=== PATIENT | female | born 1985 | race Caucasian/White ===

== ENCOUNTER 2019-10-05 12:07 | Outpatient (CLI) | payer MEDICAID, SELFPAY ==
--- NOTE | 2019-10-05 | US_ITS ---
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 Single intrauterine gestation in transverse presentation. Cervix is Closed and normal length. Cervical length is 4.1 cm. Normal amount of amniotic fluid surrounds the fetus. Placenta: Fundal and extends anterior to posterior. No previa or abruption. Placenta grade 1 Heart: 161 BPM. Four chambers are identified. Anatomy: Intracranial structures are normal. The spine is posterior during the entire examination. Th e overlying skin is very difficult to visualize as are the lamina. kidneys, stomach and urinary bladder are unremarkable. Abdominal wall, three-vessel cord and cord insertion site are normal. 4 extremities are present. profile: Unremarkable. Gender: Male. measurements: BPD = 4.9 cm = 20w6d HC = 18.2 cm = 20w4d AC = 17.2 cm = 22w1d FL = 3.4 cm = 20w4d EFW: 414 g., Measurements are internally concordant. AGA by ultrasound: 20w1d RHYS by ultrasound: 02/15/2020 US/US OB >= 14 weeks fetus [id number] IMPRESSION: 1. Single intrauterine gestation of 20w1d with an EDC of 02/15/2020. 2. spine is posterior during this examination which limits evaluation. T he remaining anatomy is normal. Recommend short-term, 2-3 week follow-up of the spine to ensure no abnormality.
== END 2019-10-05 12:08 | disposition home or self-care (01) ==
LOC: RADOUTREAD 10-06 07:41
PROVIDERS: Family Provider Nurse Practitioner Family; PCP Nurse Practitioner Family; Visit Provider Family Medicine
DX: Z01.89 Encounter for other specified special examinations (principal)

== ENCOUNTER 2020-01-22 06:11 | Inpatient (IN) | payer MEDICAID, SELFPAY ==
[2020-01-22] VITALS (83 sets, daily range): BP systolic 0–138; BP diastolic 0–84; PULSE 59–94; RESP 14–18; TEMP 36.4–37.1; O2SAT 98–100; BMI 29.0
[2020-01-22] MEDS: dextrose 5%-lactated ringers 1,000 ML 125 ML IV (07:01)
[2020-01-22 07:37] LABS: Basophils % 0.4 %; Eosinophils # 0.1 10^3/uL (0.0-0.8); Hematocrit 30.8 % (37.0-47.0); Lymphocytes # 1.7 10^3/uL (0.8-4.8); Lymphocytes % 21.7 %; Mean Corpuscular HGB Conc 32.5 g/dL (30.0-36.0); Mean Corpuscular Hemoglobin 28.2 pg (28.0-34.0); Mean Corpuscular Volume 86.8 fL (81-99); Mean Platelet Volume 11.7 fL (7.4-10.4); Monocytes # 0.7 10^3/uL (0.2-0.9); Monocytes % 8.4 %; Neutrophils # 5.3 10^3/uL (1.8-7.7); Neutrophils % 67.2 %; Nucleated Red Blood Cells % 0 %; Platelet Count 184 10^3/cmm (130-400); Red Blood Count 3.55 10^6/uL (4.1-5.3); Red Cell Distribution Width 14.1 % (12.1-15.1); White Blood Count 7.9 10^3/uL (4.0-10.0)
[2020-01-22] MEDS: miSOPROStol 100 mcg tablet 25 MCG VAGINAL ×2 (10:03→14:37)
[2020-01-22] MEDS: ceFAZolin 1,000 MG in sodium chloride 0.9% (plus) 50 ML 100 MG IV (14:35)
[2020-01-22] MEDS: lactated ringers 1,000 ML 999 ML IV ×2 (17:00→18:47)
--- NOTE | 2020-01-22 18:40 | ANES.PREANE2 ---
Pre-Anesthetic Assessment Pre-Anesthetic Assessment: Height/Weight: Height 1.52 m Weight 67.585 kg Temp Pulse Resp BP 97.8 F 74 17 104/56 01/22/20 16:16 01/22/20 18:57 01/22/20 16:16 01/22/20 18:57 Preop Diagnosis: IUP Proposed Procedure: labor epidural Was Beta Emmanuelle taken within 24 hours: N/A Social: Social History: No alcohol and No tobacco Exam: Pre-Anes Outpt Exam: alert, oriented x 3, clear to auscultation bilaterally and regular rate & rhythm Airway: Submandibular: WNL Cervical ROM: WNL MP: 2 History/ROS: No significant history except as noted Pulmonary: Comments: abnormal PFTs CV/HEM: CV/HEM: Palp Comments: fluid around the heart received US every year to check : Comments: PKD Hepatic: Hepatic: None reported GI: GI: GERD Metabolic: Metabolic: None reported Musc/skel: Musc/skel: Scoliosis Neuropsych: Neuropsych: Seizure (2 years ago under stressful situations) Anesthetic Plan: ASA status: 2 Anesthesia: Anesthesia Evaluation Risk of > 500 ml blood loss (7ml/kg in children): No Meds/Allergies Current Medications: Current Medications Generic Name Dose Route Start Last Admin Trade Name Freq PRN Reason Stop Dose Admin Lactated Ringer's 1,000 mls @ 999 m ls/hr 01/22/20 06:44 01/22/20 17:00 Lactated Ringers IV 999 mls/hr .Q1H1M PRN Administration Per L&D Rescitati on Protocol Cefazolin Sodium 1 ,000 mg/ 50 mls @ 100 mls/ hr 01/22/20 06:45 01/22/20 15:35 Sodium Chloride IV Infused Q8H LEONIDES Infusion Protocol Dextrose/Lactated Ringer's 1,000 mls @ 125 m ls/hr 01/22/20 06:45 01/22/20 08:08 Dextrose 5%-Lact ated Ringers IV 0 mls/hr .Q8H LEONIDES Infusion Lactated Ringer's 1,000 mls @ 999 m ls/hr 01/22/20 18:24 01/22/20 18:47 Lactated Ringers IV 01/22/20 19:24 999 mls/hr .Q1H1M ONE Administration PFS Anesthesia Female Reproductive History: : 4 Data Anesthesia CBC & Chem 7: 01/22/20 06:56 Other Labs: Laboratory Results - last 48 hr 01/22/20 06:56 WBC 7.9 RBC 3.55 L Hgb 10.0 L Hct 30.8 L MCV 86.8 MCH 28.2 MCHC 32.5 RDW 14.1 Plt Count 184 MPV 11.7 H Neut % (Auto) 67.2 Lymph % (Auto) 21.7 [place] % (Auto) 8.4 Eos % (Auto) 1.0 Baso % (Auto) 0.4 Neut # (Auto) 5.3 Lymph # (Auto) 1.7 [place] # (Auto) 0.7 Eos # (Auto) 0.1 Baso # (Auto) 0.0 Nucleated RBC % (auto) 0 Nucleated RBCs # 0.0 Cardiac Studies: No Data to Display
--- NOTE | 2020-01-22 19:39 | ANES.PROC ---
Anesthesia Procedures Procedure/Date: 01/22/20 Epidural: Time Out Performed: Yes Consents Signed: Procedure Consent Consent: requested by attending/covering physician Lumbar Level: L4-L5 Epidural position: sitting Epidural procedure: sterile prep of area, 1% lidocaine to numb the area, 18 g needle, negative for paresthesia passed, test dose given, 1.5% xylocaine 1:200k epi (5ml), placed PCEA, no systemic response, sterile dressing applied, L.U.D. no apparent complications and 0.2% Ropiavacaine @ mls/hr (13)
[2020-01-22] MEDS: oxytocin 30 UNIT/500 ML BAG IV (20:55)
--- NOTE | 2020-01-22 22:45 | PM.DELIVERY ---
Delivery Note: Date of delivery: January 22, 2020 Pre-Delivery Course: The patient is a 34-year-old 3 para 2 with an estimated gestational age of 35 weeks and 4 days who presented to the hospital this morning complaining of spontaneous rupture of membranes. She was evaluated by the nurses on the OB floor and found to be nitrazine positive and grossly ruptured. Her GBS status is unknown. She is placed on Keflex per GBS protocol. She was placed on Cytotec 25 mcg x 2. She was also ultimately placed on Pitocin. She gradually progressed to complete without difficulty. The infant did have several episodes of early and late decelerations. She did receive an epidural. Delivery: DELIVERY: The patient progressed to complete without difficulty. She delivered a male with a weight of 5 pounds 15 ounces with Apgars of 9, 10. The baby was delivered from the PING position. The baby's mouth and nose were suctioned at the site of the perineum. The baby was then completely delivered and placed on the mother's abdomen. The cord was then clamped and cut. There was no nuchal cord. A true knot was noted in the cord. There was no meconium. The placenta and 3 vessel cord were delivered intact shortly thereafter. The perineum and vaginal vault were carefully examined. No lacerations were noted. Both the mother and the baby were in stable condition. Post-Delivery Status: Good A&P Assessment and plan (1) 35 weeks gestation of : Anticipate routine care. I anticipate the patient will be discharged in 1 to 2 days as a standard. Status: Acute (2) Spontaneous vaginal delivery: Status: Acute Coding Level of Care Code Acute Electric Motor Repairman for Chg Fwd Diagnoses 35 weeks gestation of Z3A.35 Spontaneous vaginal delivery O80
[2020-01-23] VITALS (16 sets, daily range): BP systolic 0–123; BP diastolic 0–69; PULSE 60–86; RESP 16–18; TEMP 36.6–36.9; O2SAT 97–99
[2020-01-23] MEDS: lanolin oint 7 gm 1 APPLIC TOPICAL (05:33)
[2020-01-23] MEDS: benzocaine-menthol 78 gm Canister 1 SPRAY TOPICAL (05:33)
[2020-01-23] MEDS: docusate sodium 100 mg Capsule PO ×2 (07:36→18:07)
[2020-01-23] MEDS: prenatal vitamin Capsule 1 CAP PO (07:36)
[2020-01-23] MEDS: acetaminophen 325 mg Tablet 650 MG PO ×2 (07:36→19:47)
--- NOTE | 2020-01-23 09:43 | P.PN_ITS ---
PAIRER INSPECTOR Subjective Subjective: Interval history: The patient is doing remarkably well. She has had minimal bleeding. She is breast-feeding well. Her pain is been adequately controlled. There have been no concerns. Labor: Station: 0 Amniotic Membrane Status: Ruptured Monitor Mode: External Contraction Pattern: Regular Vitals/I&O/Wt Last Vital Signs Temp 97.8 F 01/23/20 08:41 Pulse 68 01/23/20 08:41 Resp 18 01/23/20 08:41 BP 122/63 01/23/20 08:41 Pulse Ox 99 01/23/20 08:41 01/22/20 01/23/20 01/23/20 22:59 06:59 14:59 Intake Total 1083 / 1272.583 Output Total 450 / 450 300 / 750 Balance 633 / 822.583 -300 / 522.583 Weight last 48 hrs Weight 149 lb Physical Exam Narrative: EXAM NARRATIVE: The patient is alert. She appears comfortable. Her heart has a regular rate and rhythm with no murmurs appreciated. Lungs are clear to auscultation bilaterally. Her fundus is firm and below the umbilicus. Urinary Catheter Management^: Cruz: Cath Placed During This Visit: yes, but has since been removed by the nurse Reason for Continuing Indwelling Catheter: Decision to DC Catheter Urinary Catheter Date of Insertion: 01/22/20 Urinary Catheter Time of Insertion: 20:30 Date Urinary Catheter Removed: 01/22/20 Time Urinary Catheter Discontinued: 22:15 Data : 01/22/20 06:56 A&P Assessment and plan (1) Spontaneous vaginal delivery: I anticipate routine care. She should be going home in 1 to 2 days. Status: Acute (2) 35 weeks gestation of : Status: Acute Attestations Medical Necessity Statement*: Routine care. Coding Level of Care Code Acute Private Tutors And Teachers for Chg Fwd Diagnoses Spontaneous vaginal delivery O80 35 weeks gestation of Z3A.35
[2020-01-23 10:58] LABS: Hematocrit 29.5 % (37.0-47.0); Hemoglobin 9.6 g/dL (11.5-15.3); Mean Corpuscular HGB Conc 32.5 g/dL (30.0-36.0); Mean Corpuscular Hemoglobin 28.5 pg (28.0-34.0); Mean Corpuscular Volume 87.5 fL (81-99); Mean Platelet Volume 11.7 fL (7.4-10.4); Platelet Count 184 10^3/cmm (130-400); Red Blood Count 3.37 10^6/uL (4.1-5.3); Red Cell Distribution Width 14.4 % (12.1-15.1); White Blood Count 9.5 10^3/uL (4.0-10.0)
[2020-01-24 05:00] VITALS: BP 109/68; PULSE 68; RESP 16; O2SAT 98
--- NOTE | 2020-01-24 07:24 | P.DS_ITS ---
Discharge Providers MECHANIC WELDER TRUCK DRIVER Date of Admission: 01/22/20 06:11 Date of Discharge: 01/24/20 Attending Provider at Admission: Duarte Keane MD Attending Provider at Discharge: Duarte Keane MD Diagnoses at Discharge Discharge Diagnosis (1) Spontaneous vaginal delivery: Status: Acute (2) 35 weeks gestation of : Status: Acute Reason for Visit Reason for Visit: OB TRIAGE Hospital Course Hospital Course: The patient is a 34-year-old multigravida female at 35 weeks estimated gestational age who presented to the hospital with spontaneous rupture of membranes. Her labor was unremarkable. She also had an unremarkable vaginal delivery of a healthy-appearing 35-week male . Her course is also been unremarkable. She has breast-fed well. Her bleeding has been scant. Her pain is been well controlled. There have been no concerns. Information Peripartum Data: Infant Delivery Method: Vaginal Physical Exam Narrative: EXAM NARRATIVE: The patient is alert. She appears comfortable. Her heart has a regular rate and rhythm with no murmurs appreciated. Lungs are clear to auscultation bilaterally. Her fundus is firm and below the umbilicus. Urinary Catheter Management^: Cruz: Cath Placed During This Visit: yes, but has since been removed by the nurse Reason for Continuing Indwelling Catheter: Decision to DC Catheter Urinary Catheter Date of Insertion: 01/22/20 Urinary Catheter Time of Insertion: 20:30 Date Urinary Catheter Removed: 01/22/20 Time Urinary Catheter Discontinued: 22:15 Discharge Data Data Completed and Pending: Labs from last 24 hours 01/23/20 10:34 WBC 9.5 RBC 3.37 L Hgb 9.6 L Hct 29.5 L MCV 87.5 MCH 28.5 MCHC 32.5 RDW 14.4 Plt Count 184 MPV 11.7 H Vitals: Last Vital Signs Temp 98.1 F 01/23/20 21:25 Pulse 68 01/24/20 05:00 Resp 16 01/24/20 05:00 BP 109/68 01/24/20 05:00 Pulse Ox 98 01/24/20 05:00 Discharge Plan Discharge Patient Disposition: Home, Self-Care Condition: Stable Prescriptions: New ibuprofen 800 mg Tablet 800 mg PO TID Qty: 45 RF: 0 Continued 28 mg iron- 800 mcg Tablet 1 tab PO DAILY RF: 0 Discharge Orders: Discharge Order (Routine); Ordered 01/24/20 Ordered By: Duarte Keane Referrals: Duarte Keane MD [Physician] - 7-10 days (Also set up 6 week check) Discharge Diet: Usual diet Discharge Activity: Limit activity as instructed Discharge Attestations MECHANIC WELDER TRUCK DRIVER Time Spent in Discharge Care*: less than 30 min Coding Level of Care Code Acute Linux Network Systems Administrator for Chg Fwd Diagnoses Spontaneous vaginal delivery O80 35 weeks gestation of Z3A.35
[2020-01-24 09:20] VITALS: BP 98/69; PULSE 83; RESP 16; TEMP 36.7; O2SAT 97
[2020-01-24] MEDS: prenatal vitamin Capsule 1 CAP PO (09:23)
[2020-01-24] MEDS: docusate sodium 100 mg Capsule PO (09:23)
[2020-01-24 16:15] VITALS: BP 119/72; PULSE 66; RESP 16; TEMP 36.7; O2SAT 98
--- NOTE | 2020-01-24 18:16 | PC.NURSE ---
Mom and baby taken to car for discharge per wheelchair at 1800, nurse and tech at side. While assessing carseat and adjusting appropriately for baby it was found that the seat would not adjust down small enough for baby. Carseat was noted to be within correct guidelines for date, weight, and rear facing but would not allow to adjust down to correct size. Mother and baby then placed back into wheelchair and taken back to OB dept while father goes to store to buy new seat.
== END 2020-01-24 19:00 | disposition home or self-care (01) | DRG 807 ==
LOC: OPOB 06:15 → OBGYN 06:15 → OPOB 22:43 → OBGYN 22:43
PROVIDERS: Admitting Provider Family Medicine; Family Provider Nurse Practitioner Family; Visit Provider Family Medicine
DX: O42.013 Preterm premature rupture of membranes, onset of labor within 24 hours of rupture, third trimester (principal); Z37.0 Single live birth; Z3A.35 35 weeks gestation of pregnancy; O76 Abnormality in fetal heart rate and rhythm complicating labor and delivery
CPT/HCPCS: 12345; 36415; 51702; 59025; 59409; 83986; 85025; 85027; 99211; J0690; J2795

== ENCOUNTER 2020-04-06 15:22 | Outpatient (CLI) | payer MEDICAID, SELFPAY ==
--- NOTE | 2020-04-06 15:23 | USCV_ITS ---
Veronica Michelle Age: 34 Gender: F : 1985 Exam Date: 04/06/2020 15:42 Ordering Phys: Bernabe Shay PA-C XX Technologist: Beti Goodwin Exam Location: [facility] [place] Indication: Chest Pain BP: 107 / 58 HR: 74 Rhythm: Sinus Technical Quality: Adequate MEASUREMENTS (Male / Female) Normal Values 2D ECHO LV Diastolic Diameter PLAX 4.3 cm 4.2 - 5.9 / 3.9 - 5.3 cm LV Systolic Diameter PLAX 3.0 cm LV Chamber Size 2.6 cm IVS Diastolic Thickness 0.9 cm 0.6 - 1.0 / 0.6 - 0.9 cm IVS Systolic Thickness 0.9 cm LVPW Diastolic Thickness 1.3 cm 0.6 - 1.0 / 0.6 - 0.9 cm LVPW Systolic Thickness 1.5 cm RV Chamber Size 2.2 cm LVOT Diameter 2.0 cm LV Ejection Fraction 2D Teich 55.6 % LV Ejection Fraction MOD 2C 74.1 % LV Ejection Fraction 2C AL 74.1 % LA Diameter 2.5 cm LA Width 2.2 cm LA Height 3.0 cm RA Width 2.5 cm RA Height 3.5 cm Aorta at Sinotubular Diameter 1.8 cm M-MODE LV Diastolic Diameter MM 5.6 cm 4.2 - 5.9 / 3.9 - 5.3 cm LV Systolic Diameter MM 3.5 cm LV Ejection Fraction MM Teich 66.3 % IVS Diastolic Thickness MM 0.5 cm 0.6 - 1.0 / 0.6 - 0.9 cm IVS Systolic Thickness MM 0.9 cm LVPW Diastolic Thickness MM 0.7 cm 0.6 - 1.0 / 0.6 - 0.9 cm LVPW Systolic Thickness MM 1.3 cm Aortic Annulus Diameter 3.5 cm LA Ao Ratio MM 0.7 MV E Point Septal Separation 0.6 cm DOPPLER AV Peak Velocity 114.0 cm/s LVOT Peak Velocity 106.0 cm/s AV Area Cont Eq vti 3.0 cm squared AV Area Cont Eq pk 3.0 cm squared MV Area PHT 3.1 cm squared Mitral E to A Ratio 1.3 MV E' Velocity 15.0 cm/s Mitral E to MV E' Ratio 5.2 Mitral E to LV E' Lateral Ratio 4.9 Mitral E to LV E' Septal Ratio 5.5 TR Peak Velocity 222.0 cm/s TR Peak Gradient 19.6 mmHg TV Peak E Velocity 68.0 cm/s Right Atrial Pressure 3.0 mmHg Pulmonary Artery Systolic Pressu 22.7 mmHg PV Peak Velocity 52.0 cm/s RV Acceleration Time 0.2 s RV Ejection Time 0.3 s RV AcT/ET 0.5 FINDINGS Left Ventricle Normal left ventricular size, systolic function and wall thickness, with no regional wall motion abnormalities. LVEF is 55 to 60%. Normal left ventricular wall thickness. Normal diastolic filling pattern. Right Ventricle The right ventricle is normal in size and function. Right Atrium The right atrium is normal in size. Left Atrium The left atrium is normal in size. Mitral Valve Structurally normal mitral valve without significant stenosis or prolapse. Trace mitral regurgitation is noted. Aortic Valve Structurally normal aortic valve without significant sclerosis or stenosis. There is no aortic regurgitation. Tricuspid Valve Structurally normal tricuspid valve without significant stenosis or regurgitation. Pulmonary artery systolic pressure is normal. Pulmonic Valve Structurally normal pulmonic valve without significant stenosis. There is no pulmonic regurgitation. Pericardium Normal pericardium without effusion. Aorta Normal ascending aorta dimension. CONCLUSIONS Normal LV systolic function with EF of 55 to 60%. Normal diastolic function Carlos Sims MD (Electronically Signed) Final Date: 06 April 2020 17:18 S
== END 2020-04-06 15:23 | disposition home or self-care (01) ==
LOC: US 15:22
PROVIDERS: PCP Family Medicine; Visit Provider Physician Assistant Medical
DX: R07.9 Chest pain, unspecified (principal)
CPT/HCPCS: 93306

== ENCOUNTER → 2021-08-10 10:07 | Outpatient (BNVA) | payer BC, MEDICAID, SELFPAY | PROVIDERS: PCP Family Medicine; Visit Provider Nurse Practitioner Family | DX: Z20.822 Contact with and (suspected) exposure to COVID-19 (principal) | CPT/HCPCS: 87635 ==

== ENCOUNTER → 2022-05-31 16:20 | Outpatient (BNVA) | payer BC, MEDICAID, SELFPAY | PROVIDERS: PCP Family Medicine; Visit Provider Obstetrics & Gynecology | DX: Z01.419 Encounter for gynecological examination (general) (routine) without abnormal findings (principal); N81.2 Incomplete uterovaginal prolapse; R63.6 Underweight; G89.29 Other chronic pain; R10.2 Pelvic and perineal pain; N93.0 Postcoital and contact bleeding; N85.4 Malposition of uterus | CPT/HCPCS: 87624 ==

== ENCOUNTER → 2022-07-11 11:15 | Outpatient (BNVA) | payer BC, MEDICAID, SELFPAY | PROVIDERS: PCP Family Medicine; Visit Provider Internal Medicine | DX: E04.2 Nontoxic multinodular goiter (principal); R94.6 Abnormal results of thyroid function studies | CPT/HCPCS: 36415; 83516; 84439; 84443; 84480; 86376; 86800 ==

== ENCOUNTER → 2022-08-02 11:40 | Outpatient (BNVA) | payer BC, MEDICAID, SELFPAY | PROVIDERS: PCP Family Medicine; Referring Provider Nurse Practitioner Family; Visit Provider Internal Medicine | DX: R76.8 Other specified abnormal immunological findings in serum (principal); M45.0 Ankylosing spondylitis of multiple sites in spine; M25.50 Pain in unspecified joint | CPT/HCPCS: 36415; 80053; 81003; 82595; 82607; 82784; 83516; 83735; 84100; 84425; 85025; 85651; 86140; 86160; 86162; 86200; 86235; 86255; 86376; 86431; 86704; 86803; 86812; 87340 ==

== ENCOUNTER → 2023-01-09 14:31 | Outpatient (BNVA) | payer BC, MEDICAID, SELFPAY | PROVIDERS: PCP Family Medicine; Visit Provider Internal Medicine | DX: R94.6 Abnormal results of thyroid function studies (principal); E04.2 Nontoxic multinodular goiter | CPT/HCPCS: 36415; 84439; 84443; 84480 ==

== ENCOUNTER 2023-04-07 08:52 | Outpatient (CLI) | payer BC, MEDICAID, SELFPAY ==
--- NOTE | 2023-04-07 09:13 | NM_ITS ---
WS: [id number] NUCLEAR MEDICINE 24 HOUR I-123 THYROID UPTAKE INDICATION: Hyperthyroidism TECHNIQUE: I-123 24 HOUR THYROID UPTAKE WITH PLANAR IMAGING. 125 UCI NICOLAS 123 COMPARISON: None FINDINGS: Normal bilateral homogeneous thyroid uptake. No focal cold nodules or photopenic defects. Increased 24-hour uptake 69.14%. (NORMAL 24H THRYOID UPTAKE 8-35%) IMPRESSION: Increased 24-hour uptake 69.14% compatible with hyperthyroidism. Recommend correlation wi thyroid function studies.
== END 2023-04-07 08:53 | disposition home or self-care (01) ==
LOC: RAD 08:54
PROVIDERS: PCP Family Medicine; Visit Provider Specialist
DX: E04.1 Nontoxic single thyroid nodule (principal); E05.90 Thyrotoxicosis, unspecified without thyrotoxic crisis or storm
CPT/HCPCS: 78014; A9516

== ENCOUNTER → 2023-05-27 11:12 | Outpatient (BNVA) | payer BC, MEDICAID, SELFPAY | PROVIDERS: PCP Family Medicine; Visit Provider Internal Medicine | DX: R94.6 Abnormal results of thyroid function studies (principal); E04.2 Nontoxic multinodular goiter | CPT/HCPCS: 84439; 84443; 84480 ==

== ENCOUNTER 2023-05-28 12:11 | Outpatient (CLI) | payer BC, MEDICAID, SELFPAY ==
--- NOTE | 2023-05-28 12:30 | US_ITS ---
WS: [id number] US pelv w/transvag [id number] HISTORY: R10.2 - Pelvic and perineal pain COMPARISON: 05/29/2016 Uterus: 8.1 cm x 7.9 cm x 4.5 cm. Patient has a known bicornuate uterus as identified on prior imaging studies. Uterus remains normal s ize and retroverted for majority of this examination. No fibroid or mass. Endometrium: 0.8 cm. Normal Right ovary: 3.6 cm x 3.8 cm x 2.6 cm. Normal size and vascularity, no cystic or solid masses. Small follicles. Collapsing corpus luteum measures 1.5 x 1.6 cm. No solid mass. Left ovary: 4.1 cm x 1.8 cm x 1.9 cm. Normal size and vascularity, no cystic or solid masses. There is a small amount of free fluid in the pelvis. Prominent bilateral pelvic varicosities. IMPRESSION: 1. No fibroid or mass. Patient has a known bicornuate uterus. 2. No ovarian mass. 3. Correlate for pelvic venous congestion syndrome.
== END 2023-05-28 12:12 | disposition home or self-care (01) ==
LOC: RAD 12:12
PROVIDERS: PCP Family Medicine; Visit Provider Obstetrics & Gynecology
DX: R10.2 Pelvic and perineal pain (principal); N81.2 Incomplete uterovaginal prolapse; G89.29 Other chronic pain; Q51.3 Bicornate uterus
CPT/HCPCS: 76830; 76856

== ENCOUNTER 2024-09-22 12:14 | Outpatient (CLI) | payer BC, MEDICAID, SELFPAY | END 2024-09-22 12:15 | disposition home or self-care (01) | LOC: SLEEP 12:16 | PROVIDERS: PCP Family Medicine; Visit Provider Specialist | DX: G47.19 Other hypersomnia (principal) | CPT/HCPCS: G0399 ==

== ENCOUNTER 2024-10-06 12:00 | Outpatient (CLI) | payer BC, MEDICAID, SELFPAY ==
--- NOTE | 2024-10-06 12:00 | MM_ITS ---
WS: [id number] SCREENING DIGITAL BREAST TOMOSYNTHESIS MAMMOGRAM WITH CAD HISTORY: Z12.39 - Encounter for other screening for malignant neoplasm, nipple discharge was noted during the mammogram. COMPARISON: None available. Bilateral CC and MLO with tomosynthesis and synthetic mammography submitted. Computer aided detection analyzed. Breast composition: The breasts are extremely dense, which lowers the sensitivity of mammography. No areas of distortion. No masses. Very coarse calcifications are noted within each breast but greater distribution on the LEFT. No nipple retraction. MM/MM scr tomosynthesis [id number] IMPRESSION: BI-RADS: 0 - Incomplete: Need additional imaging evaluation FOLLOW UP: Need Additional Imaging Recommendation: Bilateral retroareolar breast ultrasound due to nipple discharg e.
== END 2024-10-06 12:01 | disposition home or self-care (01) ==
LOC: MOBLMAM 12:02
PROVIDERS: PCP Obstetrics & Gynecology; Visit Provider Obstetrics & Gynecology
DX: Z12.39 Encounter for other screening for malignant neoplasm of breast (principal); Z12.31 Encounter for screening mammogram for malignant neoplasm of breast; R92.343 Mammographic extreme density, bilateral breasts; R92.1 Mammographic calcification found on diagnostic imaging of breast
CPT/HCPCS: 77063; 77067

== ENCOUNTER 2024-10-19 11:10 | Outpatient (CLI) | payer BC, MEDICAID, SELFPAY ==
--- NOTE | 2024-10-19 11:30 | US_ITS ---
WS: [id number] ULTRASOUND BILATERAL BREASTs HISTORY: Bilateral nipple discharge. COMPARISON: Mammogram 10/06/2024 TECHNIQUE: 2-D and Doppler. Ultrasound is performed of the retroareolar region of each breast. No significant duct dilatation is identified. There is no soft tissue mass or shadowing. No dilated ducts or duct ectasia. US/US breast BI limited* [id number] IMPRESSION: BI-RADS: 2- Benign FOLLOW-UP: 1 Year Follow-up Recommend return to annual screening mammography. No ultrasound explanation for nipple discharge.
== END 2024-10-19 11:11 | disposition home or self-care (01) ==
PROVIDERS: PCP Obstetrics & Gynecology; Visit Provider Obstetrics & Gynecology
DX: N64.52 Nipple discharge (principal)
CPT/HCPCS: 76642

== ENCOUNTER → 2024-12-06 10:41 | Outpatient (BNVA) | payer BC, MEDICAID, SELFPAY | PROVIDERS: PCP Obstetrics & Gynecology; Visit Provider Nurse Practitioner | DX: M19.012 Primary osteoarthritis, left shoulder (principal); R29.898 Other symptoms and signs involving the musculoskeletal system | CPT/HCPCS: 73030 ==

== ENCOUNTER → 2025-07-18 12:55 | Outpatient (BNVA) | payer BC, MEDICAID, SELFPAY | PROVIDERS: PCP Obstetrics & Gynecology; Referring Provider Family Medicine; Visit Provider Internal Medicine | DX: I45.19 Other right bundle-branch block (principal); I45.2 Bifascicular block; R10.20 Pelvic and perineal pain unspecified side | CPT/HCPCS: 82670; 83001; 83002; 85025; 93005 ==

== ENCOUNTER 2025-07-27 13:22 | Outpatient (CLI) | payer BC, MEDICAID, SELFPAY ==
--- NOTE | 2025-07-27 13:45 | US_ITS ---
WS: [id number] US transvaginal [id number] HISTORY: R10.2 - Pelvic and perineal pain COMPARISON: 05/28/2023 Uterus: 8.2 cm x 5.3 cm x 4.1 cm. Retroverted uterus is normal size. Prior history of bicornuate uterus. Bicornuate uterus is not definitely identified today. Endometrium: 1.0 cm. There is a small hyperechoic focus in the distal endometrium measuring 0.4 x 0.4 x 0.4 cm. This may be a small polyp. Not definitely seen on the prior studies. No significant increased vascularity. There is an additional similar hyperechoic focus measuring 0.5 x 0.4 x 0.5 cm along the anterior mid endometrium. Right ovary: 3.3 cm x 2.6 cm x 1.4 cm. Normal size and vascularity, no cystic or solid masses. Small follicles. Left ovary: 3.9 cm x 2.6 cm x 3.3 cm. Normal size and vascularity, no cystic or solid masses. Dominant LEFT follicle, 2.7 x 2.1 x 1.9 cm. No free fluid in the cul-de-sac. US/US transvaginal [id number] IMPRESSION: 1. Retroverted uterus. 2. There are 2 small hyperechoic foci within the endometrium. One is in the fu ndal portion of the endometrium measuring 0.4 x 0.4 x 0.4 cm. There is an addit ional hyperechoic focus in the mid anterior endometrium measuring 0.5 x 0.4 x 0 .5 cm. Suspect these are probably small polyps.
== END 2025-07-27 13:23 | disposition home or self-care (01) ==
LOC: RAD 13:22
PROVIDERS: PCP Obstetrics & Gynecology; Visit Provider Obstetrics & Gynecology
DX: R10.20 Pelvic and perineal pain unspecified side (principal); G89.29 Other chronic pain; N85.4 Malposition of uterus; R93.89 Abnormal findings on diagnostic imaging of other specified body structures; N85.8 Other specified noninflammatory disorders of uterus
CPT/HCPCS: 76830